=== PATIENT | female | born 1995 | race Caucasian/White ===

== ENCOUNTER 2023-11-09 04:00 | Emergency (ER) | payer OTHER ==
[~2023-11-09] VITALS: Ht 172.7 cm; Wt 94.8 kg
[2023-11-09] MEDS ORDERED: AMPH20TA3 PO (04:17)
[2023-11-09] MEDS ORDERED: DESO1TAB6 PO (04:17)
[2023-11-09] MEDS ORDERED: MONT10TA33 PO (04:17)
[2023-11-09] MEDS ORDERED: CLINDAMYCIN HCL 150 MG CAPSULE ONE (04:33)
[2023-11-09] MEDS ORDERED: PSEUDOEPHEDRINE HCL 30 MG TABLET ONE (04:33)
[2023-11-09] MEDS: CLINDAMYCIN HCL 150 MG CAPSULE PO ONE (04:34)
[2023-11-09] MEDS ORDERED: FLUT16SP BNOSTRILS (04:34)
[2023-11-09] MEDS: PSEUDOEPHEDRINE HCL 30 MG TABLET PO ONE (04:34)
[2023-11-09] MEDS ORDERED: FLUC150T PO (04:34)
[2023-11-09] MEDS ORDERED: CLIN300C12 PO (04:34)
[2023-11-09] MEDS ORDERED: PSEU-310 PO (04:37)
[2023-11-09 04:44] VITALS: BP 133/89; TEMP 98; O2SAT 98
== END 2023-11-09 04:45 | disposition home or self-care (01) ==
LOC: ER 04:15
DX: J32.9 Chronic sinusitis, unspecified (principal); Z79.899 Other long term (current) drug therapy
CPT/HCPCS: A4606; A4663